=== PATIENT | male | born 1950 | race Caucasian/White ===

== ENCOUNTER 2021-02-22 16:11 | Emergency (ER) | payer MEDICARE, SELFPAY ==
[2021-02-22] VITALS (9 sets, daily range): BP systolic 145–174; BP diastolic 75–95; PULSE 56–68; RESP 13–22; O2SAT 97–99
--- NOTE | 2021-02-22 16:19 | DI.RAD.S_ITS ---
PROCEDURE: XR CHEST 1V INDICATIONS: chest pain TECHNIQUE: One view of the chest was acquired. COMPARISON: None. FINDINGS: Surgical changes and devices: None. Lungs and pleura: Lungs are clear. No pleural effusions or pneumothorax. Mediastinum: Mediastinal contours appear normal. Heart size is normal. Bones and chest wall: No suspicious bony lesions. Overlying soft tissues appear unremarkable. IMPRESSION: No acute cardiopulmonary disease process. Dictated by: Alexa Dunlap MD, PhD on 02/22/2021 at 16:40 Approved by: Alexa Dunlap MD, PhD on 02/22/2021 at 16:40
[2021-02-22 16:38] LABS: Add Manual Diff / Slide Review NO; Basophils Absolute Auto 100 /uL (0-100); Basophils Percent Auto 1.1 % (0-2); Eosinophils Absolute Auto 200 /uL (0-450); Eosinophils Percent Auto 3.2 % (2-4); Hematocrit 45.5 % (41-53); Lymphocytes Absolute Auto 1700 /uL (1100-4500); Lymphocytes Percent Auto 23.9 % (25-40); Mean Corpuscular HGB Conc 35.1 % (30-36); Mean Corpuscular Hemoglobin 31.9 PG (26-34); Mean Corpuscular Volume 90.8 fL (80-100); Monocytes Absolute Auto 800 /uL (0-900); Monocytes Percent Auto 11.3 % (3-14); Neutrophils Absolute Auto 4400 /uL (1500-7000); Neutrophils Percent Auto 60.5 % (50-75); Platelet Count 220 X10^3/uL (150-400); Red Blood Cell Count 5.01 X10^6/uL (4.5-5.9); Red Cell Distribution Width 13.3 % (11.6-14.8); White Blood Cell Count 7.3 X10^3/uL (4.5-11.0)
[2021-02-22 16:45] LABS: Prothrombin Time 11.2 SECONDS (10.1-12.7)
[2021-02-22 16:48] LABS: PTT Partial Thromboplastin Tim 36 SECONDS (26.4-36.2)
[2021-02-22 16:49] LABS: Alanine Aminotransferase 25 IU/L (<50); Albumin 4.7 g/dL (3.5-5.0); Albumin Globulin Ratio 1.6 (1.0-2.8); Alkaline Phosphatase 93 U/L (38-126); Aspartate Aminotransferase 30 IU/L (17-59); BUN Creatinine Ratio 15.3 (6-22); Bilirubin Total 0.7 mg/dL (0.2-1.3); Blood Urea Nitrogen 18 mg/dL (9-20); Calcium 10.1 mg/dL (8.4-10.2); Carbon Dioxide 27 mmol/L (22-32); Chloride 103 mmol/L (98-107); Creatine Kinase 163 U/L (55-170); Estimated Glomerular Filt Rate > 60.0 mL/min (>60); Glucose 101 mg/dL (80-110); HEMOLYSIS < 15 (0-50); Lipase 177 U/L (23-300); Potassium 3.8 mmol/L (3.4-5.1); Sodium 138 mmol/L (137-145); Total Protein 7.7 g/dL (6.3-8.2)
[2021-02-22 17:00] LABS: Troponin I < 0.012 ng/mL (0.01-0.034)
[2021-02-22 17:04] LABS: CKMB % Relative Index 1.8 % (1.5-5.0); Creatine Kinase MB 2.89 ng/mL (<2.37)
--- NOTE | 2021-02-22 17:08 | ED_ITS ---
HPI - Chest Pain General Chief Complaint: Chest Pain Stated Complaint: Chest Pains, Pressure, Beltching, Hx Stints Time Seen by Provider: 02/22/21 16:55 Source: patient and family Mode of arrival: Ambulatory Limitations: no limitations History of Present Illness HPI narrative: Patient is a 70-year-old male who is here for evaluation of epigastric abdominal pain. States the symptoms started yesterday afternoon and have continued until today but there have been times where he is been relatively asymptomatic. He stated that when the symptoms 1st started he did have a belching episode which did improving somewhat. He does have a history of coronary artery disease and stents placed. Does not seem to get worse with palpation or movement or breathing. He does feel it as a cramping sensation. No back pain. Has not tried anything for symptoms prior to arrival. Review of Systems Constitutional Constitutional: Denies fatigue, Denies fever(s) and Denies headache(s) Eyes Eyes: Denies change in vision ENT Ears, Nose, Mouth, and Throat: Denies headache(s) and Denies sore throat Cardiovascular Cardiovascular: Reports chest pain, Denies edema, Denies irregular heart rhythm and Denies dyspnea Respiratory Respiratory: Denies cough and Denies dyspnea Gastrointestinal Gastrointestinal: Reports abdominal pain, Denies change in bowel habits, Denies nausea and Denies vomiting Genitourinary Genitourinary: Denies dysuria Genitourinary: Denies dysuria Musculoskeletal Musculoskeletal: Denies arthralgias Integumentary/Breasts Skin/Breast: Denies rash Neurologic Neurologic: Denies behavioral changes and Denies headache(s) Psychiatric Psychiatric: Denies behavioral changes Endocrine Endocrine: Denies fatigue Hematologic/Lymphatic On Anticoagulants: No Patient History Medical History Coronary artery disease Social History lives independently: Yes Exam Initial Vital Signs Initial Vital Signs: Vital Signs Pulse Rate 68 02/22/21 16:17 Respiratory Rate 22 02/22/21 16:17 Pulse Oximetry 97 02/22/21 16:17 Const General: cooperative, healthy appearing, comfortable and well developed Limitations: mental status not altered HENMT Head: normal to inspection and normocephalic Neck Lymphatic: No lymphadenopathy Chest Chest: normal inspection of the chest and No tenderness Resp Effort & Inspection: normal respiratory effort Auscultation: clear to auscultation bilaterally Cardio Rate: regular rate Rhythm: regular rhythm GI Inspection: non-distended Palpation: soft, guarding and tender (Epigastric region) Back/Spine/Pelvis Back: No CVA tenderness Skin Lesions: no lesions Rashes: no rashes Neuro General: patient alert, patient awake and patient oriented x3 Cognition: normal cognition Speech: speech normal Extrem General: normal to inspection and capillary refill normal Psych Appearance: grossly normal and well kempt Scores GCS [place] coma scale eye opening: Spontaneous Shaun coma scale verbal response: Orientated Shaun coma scale motor response: Obey commands [place] coma scale total score: 15 Course Orders Ordered: ED Orders 02/22/21 16:19 XR chest 1V Stat EKG-12 Lead Stat 02/22/21 16:22 Complete Blood Count AUTO DIFF Stat Comprehensive Metabolic Panel Stat Lipase Stat Partial Thromboplastin Time Stat Prothrombin Time INR Stat Troponin & CK Cardiac Panel Stat Vital Signs Vital signs: Vital Signs - 8 hr 02/22/21 16:17 02/22/21 16:22 02/22/21 16:31 Pulse Rate 68 64 Respiratory Rate 22 Blood Pressure 174/85 H 164/95 H Pulse Oximetry 97 99 MDM - Chest Pain Lab Data Attestation: I reviewed the patient's lab results. Result diagrams: 02/22/21 16:22 02/22/21 16:22 Labs: Lab Results 02/22/21 02/22/21 02/22/21 Range/Units 16:22 16:22 16:22 WBC 7.3 (4.5-11.0) X10^3/uL RBC 5.01 (4.5-5.9) X10^6/uL Hgb 16.0 (13.5-17.5) g/dL Hct 45.5 (41-53) % MCV 90.8 (80-100) fL MCH 31.9 (26-34) PG MCHC 35.1 (30-36) % RDW 13.3 (11.6-14.8) % Plt Count 220 (150-400) X10^3/uL Neut % (Auto) 60.5 (50-75) % Lymph % (Auto) 23.9 L (25-40) % [place] % (Auto) 11.3 (3-14) % Eos % (Auto) 3.2 (2-4) % Baso % (Auto) 1.1 (0-2) % Neut # (Auto) 4400 (0622-5754) /uL Lymph # (Auto) 1700 (1720-7428) /uL [place] # (Auto) 800 (0-900) /uL Eos # (Auto) 200 (0-450) /uL Baso # (Auto) 100 (0-100) /uL PT 11.2 (10.1-12.7) SECONDS INR 1.0 (0.9-1.3) APTT 36 (26.4-36.2) SECONDS Sodium 138 (137-145) mmol/L Potassium 3.8 (3.4-5.1) mmol/L Chloride 103 (98-107) mmol/L Carbon Dioxide 27 (22-32) mmol/L BUN 18 (9-20) mg/dL Creatinine 1.18 (0.66-1.25) mg/dL Estimated GFR > 60.0 (>60) mL/min BUN/Creatinine Ratio 15.3 (6-22) Glucose 101 (80-110) mg/dL Calcium 10.1 (8.4-10.2) mg/dL Total Bilirubin 0.7 (0.2-1.3) mg/dL AST 30 (17-59) IU/L ALT 25 (<50) IU/L Alkaline Phosphatase 93 (38-126) U/L Total Creatine Kinase 163 (55-170) U/L CK-MB (CK-2) 2.89 H (<2.37) ng/mL CK-MB (CK-2) Rel Index 1.8 (1.5-5.0) % Troponin I < 0.012 (0.01-0.034) ng/mL Total Protein 7.7 (6.3-8.2) g/dL Albumin 4.7 (3.5-5.0) g/dL Globulin 3.0 (1.7-4.1) g/dL Albumin/Globulin Ratio 1.6 (1.0-2.8) Lipase 177 (23-300) U/L 02/22/21 Range/Units 18:30 WBC (4.5-11.0) X10^3/uL RBC (4.5-5.9) X10^6/uL Hgb (13.5-17.5) g/dL Hct (41-53) % MCV (80-100) fL MCH (26-34) PG MCHC (30-36) % RDW (11.6-14.8) % Plt Count (150-400) X10^3/uL Neut % (Auto) (50-75) % Lymph % (Auto) (25-40) % [place] % (Auto) (3-14) % Eos % (Auto) (2-4) % Baso % (Auto) (0-2) % Neut # (Auto) (8378-2055) /uL Lymph # (Auto) (5159-6918) /uL [place] # (Auto) (0-900) /uL Eos # (Auto) (0-450) /uL Baso # (Auto) (0-100) /uL PT (10.1-12.7) SECONDS INR (0.9-1.3) APTT (26.4-36.2) SECONDS Sodium (137-145) mmol/L Potassium (3.4-5.1) mmol/L Chloride (98-107) mmol/L Carbon Dioxide (22-32) mmol/L BUN (9-20) mg/dL Creatinine (0.66-1.25) mg/dL Estimated GFR (>60) mL/min BUN/Creatinine Ratio (6-22) Glucose (80-110) mg/dL Calcium (8.4-10.2) mg/dL Total Bilirubin (0.2-1.3) mg/dL AST (17-59) IU/L ALT (<50) IU/L Alkaline Phosphatase (38-126) U/L Total Creatine Kinase (55-170) U/L CK-MB (CK-2) (<2.37) ng/mL CK-MB (CK-2) Rel Index (1.5-5.0) % Troponin I < 0.012 (0.01-0.034) ng/mL Total Protein (6.3-8.2) g/dL Albumin (3.5-5.0) g/dL Globulin (1.7-4.1) g/dL Albumin/Globulin Ratio (1.0-2.8) Lipase (23-300) U/L Imaging Data Chest x-ray: Radiologist's Impression: [address] [id number] ReportSigned Patient: Erik Goldberg LMR#: [id number]: 8Acct:[id number]/Sex: 70 / MDate of Service: 02/22/21Loc: EDAccession Number: [id number] Procedure: XR chest 1V Ordering Provider: Joey Farr D.O. PROCEDURE: XR CHEST 1V INDICATIONS: chest pain TECHNIQUE: One view of the chest was acquired. COMPARISON: None. FINDINGS: Surgical changes and devices: None. Lungs and pleura: Lungs are clear. No pleural effusions or pneumothorax. Mediastinum: Mediastinal contours appear normal. Heart size is normal. Bones and chest wall: No suspicious bony lesions. Overlying soft tissues appear unremarkable. IMPRESSION: No acute cardiopulmonary disease process. Dictated by: Alexa Dunlap MD, PhD on 02/22/2021 at 16:40 Approved by: Alexa Dunlap MD, PhD on 02/22/2021 at 16:40 ECG Data Attestation: I personally reviewed and interpreted this ECG as follows: Prior ECG tracings: not available for review Interpretation: Sinus rhythm Ventricular rate of 61 Normal axis Normal QRS Normal QTC No ST T wave changes MDM Narrative Medical decision making narrative: Patient's symptoms do seem to be isolated in his epigastric region any did have some tenderness to palpation in this area. He does have a history of coronary artery disease. His troponins are negative x2. His chest x-ray is unremarkable in the rest of his labs are unremarkable. Despite his past medical history I have a higher suspicion that his symptoms are GI/esophageal related rather than cardiac related. I had a discussion with him regarding this. His is at bedside. Plan will be is to discharge home with follow-up with primary doctor to discuss further risk stratification testing. He was given strict return precautions. He expressed understanding and agreement. Discharge Plan Departure Patient Disposition: Home Clinical Impression: Abdominal pain, acute, epigastric Instructions: DI for Abdominal Pain-Adult, DI for Atypical Chest Pain Activity Restrictions/Additional Instructions: Your workup here in the emergency department is very reassuring however I do recommend you contact your primary provider for a follow-up. Also return to the emergency department for any new or worsening symptoms. Continue all of your medications as directed.
[2021-02-22 18:58] LABS: Troponin I < 0.012 ng/mL (0.01-0.034)
== END 2021-02-22 19:52 | disposition home or self-care (01) ==
PROVIDERS: Emergency Provider Emergency Medicine
DX: R10.13 Epigastric pain (principal); R07.9 Chest pain, unspecified
CPT/HCPCS: 36415; 71045; 80053; 82550; 82553; 83690; 84484; 85025; 85610; 85730; 93005; 99284

== ENCOUNTER → 2021-07-13 08:04 | Outpatient (CLI) | payer MEDICARE, SELFPAY ==
[2021-07-13 09:29] LABS: Cholesterol 113 mg/dL (140-199); HDL Cholesterol 36 mg/dL (40-60); LDL Cholesterol Calculated 56 mg/dL (<100); Triglycerides 105 mg/dL (35-150)
[2021-07-13 09:43] LABS: Free T4, Direct Thyroxine 1.58 ng/dL (0.78-2.19)
[2021-07-13 09:57] LABS: Thyroid Stimulating Hormone 0.151 uIU/mL (0.47-4.68)
[2021-07-13 10:00] LABS: Prostate Specific Antigen Scrn 3.87 ng/mL (0.1-4.0)
[2021-07-16 17:53] LABS: Percent Free Testosterone 1.76 % (1.50-4.20); Testosterone Free 9.83 ng/dL (5.00-21.00); Testosterone Total 558.5 ng/dL (264.0-916.0)
== END ==
PROVIDERS: PCP Internal Medicine; Referring Provider Internal Medicine; Visit Provider Internal Medicine
DX: E03.9 Hypothyroidism, unspecified (principal); Z12.5 Encounter for screening for malignant neoplasm of prostate; E78.2 Mixed hyperlipidemia; I25.10 Atherosclerotic heart disease of native coronary artery without angina pectoris; N52.9 Male erectile dysfunction, unspecified
CPT/HCPCS: 36415; 80061; 84402; 84403; 84439; 84443; G0103

== ENCOUNTER → 2022-07-12 07:05 | Outpatient (CLI) | payer MEDICARE, SELFPAY ==
[2022-07-12 08:38] LABS: Alanine Aminotransferase 19 IU/L (<50); Albumin 4.2 g/dL (3.5-5.0); Albumin Globulin Ratio 1.4 (1.0-2.8); Alkaline Phosphatase 82 U/L (38-126); Aspartate Aminotransferase 21 IU/L (17-59); BUN Creatinine Ratio 12.7 (6-22); Bilirubin Total 0.9 mg/dL (0.2-1.3); Blood Urea Nitrogen 15 mg/dL (9-20); Carbon Dioxide 25 mmol/L (22-32); Chloride 107 mmol/L (98-107); Cholesterol 106 mg/dL (140-199); Estimated Glomerular Filt Rate > 60 mL/min (>60); Glucose 107 mg/dL (80-110); HDL Cholesterol 30 mg/dL (40-60); HEMOLYSIS < 15 (0-50); LDL Cholesterol Calculated 57 mg/dL (<100); Potassium 3.8 mmol/L (3.4-5.1); Sodium 141 mmol/L (137-145); Total Protein 7.2 g/dL (6.3-8.2); Triglycerides 95 mg/dL (35-150)
[2022-07-12 08:52] LABS: Free T4, Direct Thyroxine 1.37 ng/dL (0.78-2.19)
[2022-07-12 09:05] LABS: Thyroid Stimulating Hormone 0.418 uIU/mL (0.47-4.68)
[2022-07-13 08:13] LABS: Varicella IgG Antibody 2880 index (Immune >165)
== END ==
PROVIDERS: PCP Internal Medicine; Referring Provider Internal Medicine; Visit Provider Internal Medicine
DX: E78.2 Mixed hyperlipidemia (principal); E03.9 Hypothyroidism, unspecified
CPT/HCPCS: 36415; 80053; 80061; 84439; 84443; 86787

== ENCOUNTER → 2022-08-17 10:27 | Outpatient (CLI) | payer MEDICARE, SELFPAY ==
--- NOTE | 2022-09-07 11:27 | P.HOLT.S_ITS ---
[facility] Diver Report Referral & Results Date Patient Seen: 08/17/22 Requesting provider: Miguel Kelly Indication: Arrhythmia Duration of monitoring (days): 14 Diary information: There were 7 patient triggered events and 6 patient diary entries All of these patient events were variably associated with (within 45 seconds) sinus rhythm, PACs, and PVCs Data: Minimum heart rate was 44 beats per minute at 02:42 on 08/21/2022 Maximum sinus heart rate was 129 beats per minute at 11:51 on 08/18/2022 Maximum overall heart rate was 174 beats per minute at 21:03 on 08/20/2022 during a run of SVT Less than 1% of identified beats were ventricular or supraventricular ectopic in origin, which would classify them as rare. There were 125 runs of SVT with the fastest being the 4 beat run above rate of 174 beats per minute, the longest lasting 11.8 seconds at an average rate of 114 beats per minute which suggest possibly atrial tachycardia rather than true SVT There were no pauses of 3 seconds or longer or episodes of atrial fibrillation identified on this study Impression: 14 day quality assurance monitor chassis demonstrating rare brief runs of SVT as above Otherwise rare PVCs and PACs without clear correlation between patient reported symptoms any one particular dysrhythmia Clinical correlation suggested
== END ==
PROVIDERS: PCP Internal Medicine; Referring Provider Internal Medicine; Visit Provider Internal Medicine
DX: I49.9 Cardiac arrhythmia, unspecified (principal)
CPT/HCPCS: 93246; 93248

== ENCOUNTER → 2023-02-22 08:41 | Outpatient (CLI) | payer MEDICARE, SELFPAY ==
[2023-02-22 09:57] LABS: Alanine Aminotransferase 25 IU/L (<50); Albumin 4.2 g/dL (3.5-5.0); Albumin Globulin Ratio 1.7 (1.0-2.8); Alkaline Phosphatase 88 U/L (38-126); Aspartate Aminotransferase 25 IU/L (17-59); BUN Creatinine Ratio 15.3 (6-22); Bilirubin Total 0.8 mg/dL (0.2-1.3); Blood Urea Nitrogen 18 mg/dL (9-20); Calcium 9.1 mg/dL (8.4-10.2); Carbon Dioxide 25 mmol/L (22-32); Chloride 105 mmol/L (98-107); Cholesterol 107 mg/dL (140-199); Estimated Glomerular Filt Rate > 60 mL/min (>60); Globulin 2.5 g/dL (1.7-4.1); Glucose 108 mg/dL (80-110); HDL Cholesterol 36 mg/dL (40-60); HEMOLYSIS < 15 (0-50); LDL Cholesterol Calculated 53 mg/dL (<100); Potassium 4.4 mmol/L (3.4-5.1); Sodium 139 mmol/L (137-145); Total Protein 6.7 g/dL (6.3-8.2); Triglycerides 89 mg/dL (35-150)
[2023-02-22 10:04] LABS: Free T4, Direct Thyroxine 1.21 ng/dL (0.78-2.19)
[2023-02-22 10:18] LABS: Thyroid Stimulating Hormone 0.546 uIU/mL (0.47-4.68)
[2023-02-22 10:38] LABS: Vitamin B12 353 pg/mL (239-931)
== END ==
PROVIDERS: PCP Internal Medicine; Referring Provider Internal Medicine; Visit Provider Internal Medicine
DX: E03.9 Hypothyroidism, unspecified (principal); E78.2 Mixed hyperlipidemia; G62.9 Polyneuropathy, unspecified; I25.10 Atherosclerotic heart disease of native coronary artery without angina pectoris
CPT/HCPCS: 36415; 80053; 80061; 82607; 84439; 84443

== ENCOUNTER → 2023-09-27 08:33 | Outpatient (CLI) | payer MEDICARE, SELFPAY ==
[2023-09-27 10:03] LABS: Alanine Aminotransferase 20 IU/L (<50); Albumin 4.2 g/dL (3.5-5.0); Albumin Globulin Ratio 1.4 (1.0-2.8); Alkaline Phosphatase 80 U/L (38-126); Aspartate Aminotransferase 22 IU/L (17-59); BUN Creatinine Ratio 15.3 (6-22); Blood Urea Nitrogen 18 mg/dL (9-20); Calcium 9.4 mg/dL (8.4-10.2); Carbon Dioxide 23 mmol/L (22-32); Chloride 107 mmol/L (98-107); Cholesterol 101 mg/dL (140-199); Estimated Glomerular Filt Rate > 60 mL/min (>60); Globulin 2.9 g/dL (1.7-4.1); Glucose 106 mg/dL (80-110); HDL Cholesterol 34 mg/dL (40-60); HEMOLYSIS < 15 (0-50); LDL Cholesterol Calculated 50 mg/dL (<100); Sodium 138 mmol/L (137-145); Total Protein 7.1 g/dL (6.3-8.2); Triglycerides 83 mg/dL (35-150)
[2023-09-27 10:21] LABS: Free T4, Direct Thyroxine 1.44 ng/dL (0.78-2.19)
[2023-09-27 10:35] LABS: Thyroid Stimulating Hormone 0.983 uIU/mL (0.47-4.68)
== END ==
PROVIDERS: PCP Internal Medicine; Referring Provider Internal Medicine; Visit Provider Internal Medicine
DX: E78.2 Mixed hyperlipidemia (principal); I10 Essential (primary) hypertension; E03.9 Hypothyroidism, unspecified
CPT/HCPCS: 36415; 80053; 80061; 84439; 84443

== ENCOUNTER → 2024-09-23 09:33 | Outpatient (CLI) | payer MEDICARE, SELFPAY ==
[2024-09-23 10:39] LABS: Add Manual Diff / Slide Review NO; Basophils Absolute Auto 100 /uL (0-100); Basophils Percent Auto 0.8 % (0-2); Eosinophils Absolute Auto 200 /uL (0-450); Eosinophils Percent Auto 2.9 % (2-4); Hematocrit 46.6 % (41-53); Hemoglobin 15.6 g/dL (13.5-17.5); Lymphocytes Absolute Auto 1700 /uL (1100-4500); Lymphocytes Percent Auto 27.4 % (25-40); Mean Corpuscular HGB Conc 33.5 % (30-36); Mean Corpuscular Hemoglobin 30.8 PG (26-34); Monocytes Absolute Auto 700 /uL (0-900); Monocytes Percent Auto 11.9 % (3-14); Neutrophils Absolute Auto 3600 /uL (1500-7000); Platelet Count 251 X10^3/uL (150-400); Red Blood Cell Count 5.06 X10^6/uL (4.5-5.9); Red Cell Distribution Width 13.1 % (11.6-14.8); White Blood Cell Count 6.3 X10^3/uL (4.5-11.0)
[2024-09-23 10:51] LABS: Alanine Aminotransferase 26 IU/L (<50); Albumin 4.3 g/dL (3.5-5.0); Albumin Globulin Ratio 1.7 (1.0-2.8); Alkaline Phosphatase 86 U/L (38-126); Aspartate Aminotransferase 29 IU/L (17-59); BUN Creatinine Ratio 13.7 (6-22); Bilirubin Total 0.8 mg/dL (0.2-1.3); Blood Urea Nitrogen 17 mg/dL (9-20); Calcium 9.6 mg/dL (8.4-10.2); Carbon Dioxide 25 mmol/L (22-32); Chloride 107 mmol/L (98-107); Cholesterol 121 mg/dL (140-199); Estimated Glomerular Filt Rate > 60 mL/min (>60); Globulin 2.5 g/dL (1.7-4.1); Glucose 104 mg/dL (80-110); HDL Cholesterol 39 mg/dL (40-60); HEMOLYSIS < 15 (0-50); LDL Cholesterol Calculated 62 mg/dL (<100); Magnesium 2.1 mg/dL (1.6-2.3); Potassium 4.4 mmol/L (3.4-5.1); Sodium 139 mmol/L (137-145); Total Protein 6.8 g/dL (6.3-8.2); Triglycerides 98 mg/dL (35-150)
[2024-09-23 11:05] LABS: Free T4, Direct Thyroxine 1.18 ng/dL (0.78-2.19)
[2024-09-23 11:19] LABS: Thyroid Stimulating Hormone 0.862 uIU/mL (0.47-4.68)
== END ==
PROVIDERS: PCP Internal Medicine; Referring Provider Internal Medicine; Visit Provider Internal Medicine
DX: G47.00 Insomnia, unspecified (principal); I10 Essential (primary) hypertension; E78.2 Mixed hyperlipidemia; E03.9 Hypothyroidism, unspecified; I25.10 Atherosclerotic heart disease of native coronary artery without angina pectoris
CPT/HCPCS: 36415; 80053; 80061; 83735; 84439; 84443; 85025

== ENCOUNTER → 2025-07-17 16:17 | Outpatient (CLI) | payer MEDICARE, SELFPAY ==
--- NOTE | 2025-07-17 16:19 | DI.RAD.S_ITS ---
PROCEDURE: XR HIP W PEL IF DONE RT 2V INDICATIONS: right hip pain TECHNIQUE: 2 views of the hip were acquired. COMPARISON: None. FINDINGS: Moderate degenerative changes bilateral hips with joint space narrowing and osteophytes calc grand Alexa grade 3. Degenerative changes lower lumbar spine partially imaged. No radiographic evidence of fracture dislocation or high attenuation foreign body IMPRESSION: Degenerative changes. If symptoms persist or worsen, or there is high clinical suspicion of pelvic/hip abnormality, MRI could be performed. Dictated by: Quinton Rai M.D. on 07/18/2025 at 15:06 Approved by: Quinton Rai M.D. on 07/18/2025 at 15:08
--- NOTE | 2025-07-17 16:19 | DI.RAD.S_ITS ---
PROCEDURE: XR KNEE RT 3V INDICATIONS: right leg pain TECHNIQUE: 3 views of the knee were acquired. COMPARISON: None. FINDINGS: Mild joint space narrowing in the medial greater than patellofemoral and lateral compartments Kellgren Alexa grade 2 degenerative change. No radiographic evidence of fracture dislocation, significant knee joint effusion or high attenuation foreign body. IMPRESSION: Mild degenerative changes. Dictated by: Quinton Rai M.D. on 07/18/2025 at 13:56 Approved by: Quinton Rai M.D. on 07/18/2025 at 13:58
[2025-07-17 17:09] LABS: Appearance Urine UA CLEAR; Bilirubin Urine UA NEGATIVE (NEGATIVE); Color Urine UA YELLOW; Glucose Urine UA NEGATIVE (Negative); Ketones Urine UA TRACE (NEGATIVE); Leukocyte Esterase Urine UA NEGATIVE (NEGATIVE); Nitrite Urine UA NEGATIVE (Negative); Occult Blood Urine UA NEGATIVE (Negative); Protein Urine UA NEGATIVE (Negative); Specific Gravity Urine UA 1.010 (1.000-1.035); Urobilinogen Urine UA 0.2 E.U./dL (0.2); pH Urine UA 5.5 (4.5-8.0)
[2025-07-17 17:26] LABS: Culture Indicated Urine Cult Not Indicated
== END ==
PROVIDERS: PCP Internal Medicine; Referring Provider Internal Medicine; Visit Provider Internal Medicine
DX: M79.604 Pain in right leg (principal); M25.551 Pain in right hip; R30.0 Dysuria
CPT/HCPCS: 73502; 73562; 81001

== ENCOUNTER 2025-09-16 13:00 | Outpatient (RCR) | payer MEDICARE, SELFPAY ==
--- NOTE | 2025-08-21 17:51 | PT.OPPOC ---
Physical, Occupational & Speech Therapy At [facility] Current Diagnoses Pain in right leg (08/21/25) Visit Care Team Role Provider Type Miguel Kelly MD Family Provider Physician Primary Care Provider Specialty: Internal Medicine Address: [address] [place] [address], [address], [place], [address] Email: [email or web address] Markham PA-C Attending Provider Advanced Industrial Engineer Referring Provider Specialty: Orthopedics Orthopedic Surgery Address: [address] [place] [address], [id number] Email: [email or web address] Plan Of Care PT OP: Lower Back/Lower Extremity Start: 08/20/25 18:27 Freq: Status: Active Protocol: Document 08/21/25 13:00 [facility] (Rec: 08/21/25 13:51 [facility] [id number]) Out-Patient Physical Therapy Visit Information Visit Information Visit Type Initial Evaluation Visit Start Time 13:02 Visit Stop Time 13:46 Visit Number 1 Number of NETWORK SYSTEMS ENGINEER Visits 0 Progress Note Due 09/20/25 Current Condition History of Current Condition Onset Date 2 months ago Current Complaints B leg pain History of Current Pain in both legs and when first started it would move Condition around now it is entire leg. Has a R hip issue too. At one point, R leg was worse and if crossed legs then it would hurt. Been on maloxicam for 1 month and it is better in R hip. Has a little dog that takes for a walk and that would help when pain was more. If puts legs up, hurts less. no known reason for onset. notes leg pain was over a year. Thinks possibly getting Parkinson's for a couple of years. Legs used to feel like couldnt walk a normal pace about a year or so a go and when got dog, that improved. Has had back pain and is careful d/t hx of injurying it in past. He does back brace if lifts something heavy etc. Gets a slight tinge of R back pain. Decreased walks for a while and if goes too far, then back and hip will get worse. Gets a tired sore feeling. Sometimes he got too far and was worried about making it back. Prior to the past couple months .75-1 mile twice a day and now .5 mile twice a day. When this first happened, felt like legs were weaker. 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 Doing less around the house. Laying on back at night is less aching but still present. notes a stiffness and slowness to what he does. aggravates: at night, sitting Treatment Goals Patient/Caregiver strengthen leg muscles w/o hurting himself Goals Patient Questionnaires Lower Extremity Functional Scale LEFS Score 44/80 Functional Tests 6 Minute Walk Test Distance 1242ft 30 Second Sit to Stand Test Score 11x Comments silver chair Five Times Sit to Stand Test Score 15 sec OP Gait Assessment Comments Gait Comments dec trunk rotation Posture Evaluation Comments Posture Comments R trunk SB, inc kyphosis and fwd head Hip Strength Hip Manual Muscle Testing Right Flexion (L2) 3+ Fair+ Extension (S1) 3 Fair Abduction 3+ Fair+ External Rotation 4- Good- Internal Rotation 4+ Good+ Left Flexion (L2) 4 Good Extension (S1) 3+ Fair+ Abduction 4+ Good+ External Rotation 4 Good Internal Rotation 5 Normal Knee Strength Knee Manual Muscle Testing Right Flexion (S2) 4 Good Extension (L3) 5 Normal Left Flexion (S2) 5 Normal Extension (L3) 5 Normal Ankle/Foot Strength Ankle and Foot Manual Muscle Testing B Dorsiflexion (L4) 5 Normal Plantarflexion (S1) 5 Normal Comments seated testing B Physical Therapy Assessment Rehab Potential Rehabilitation Good Potential Evaluation Complexity Number of Personal 3 or More Factors/ Comorbidities Number of Body 4 or More Systems Impaired Clinical Evolving Presentation at Evaluation Impairments Impairments Activity Tolerance,Balance,Coordination,Functional Activities,Functional Mobility,Gait,Pain,Posture,ROM, Soft Tissue Mobility,Strength Goals pain Short Term Goal (STG Pt will be able to increase to at least .75 mile walk ) for at least one of his daily walks STG Duration 09/21 Detention Goal (LTG) Pt will be able to return to .75 mile to 1 mile walks 2x/day and doing more housework w/o inc R back, hip or BLE pain. LTG Duration 11/11 strength Short Term Goal (STG Pt will demonstrate independence w/HEP by being able to ) perform with no more than min cues. STG Duration 09/21 Farmworker Vegetable Goal (LTG) Pt will score at least 4+/5 on all BLE MMT and at least 3/5 LPM to show improved strength to allow pt to have less pain with walking and return to more ADLs LTG Duration 11/16 sit to stand Farmworker Vegetable Goal (LTG) Pt will do 5x sit to grinding operator no greater than 12 sec per age related norms to dec fall risk LTG Duration 11/21 Assessment Summary Assessment Pt presents w/R LBP, R hip pain and BLE pain and overall weakness in LEs with pt noting he may have Parkinson's but no neuro consult yet. Encouraged to discuss with primary re: neuro consult. He does have significant weakness and dec speed w/gait and mobility overall and would benefit from skilled PT to address this to improve his daily function and dec pain. Physical Therapy Plan Frequency and Duration Frequency of 1x/Week Treatment Duration of 12 treatment (weeks) Plan of Care Start 08/21/25 Date Plan of Care End 11/19/25 Date Therapeutic Interventions Therapeutic Balance Training,Gait Training,Home Exercise Program, Interventions Joint Mobilizations,Manual Therapy,Neuromuscular Re- education,Patient/Caregiver Education,Self-Care/Home Management,Soft Tissue Mobilization,Taping,Therapeutic Activities,Therapeutic Exercises Modalities Cold Pack/Ice Massage,Hot Packs,Infrared Therapy, Traction- Mechanical,Ultrasound Next Visit Focus/Plan Next Note Type Treatment Note Plan of Care Dates Plan of Care Start Date 08/21/25 Plan of Care End Date 11/19/25 Electronically Signed by: Leilani Worthington, PT 08/21/25 [id number] If you are in agreement with this Plan of Care, please return a signed and dated copy. I have reviewed this Plan of Care and certify that the skilled therapy services above are required to meet the patient?s needs. Physician Signature Date Printed Name and Credentials Clinical Instructor Signature Printed Name and Credentials
--- NOTE | 2025-08-28 16:24 | PT.OTN ---
Current Diagnoses Pain in right leg (08/28/25) Physical Therapy Treatment Note PT OP: Lower Back/Lower Extremity Start: 08/20/25 18:27 Freq: Status: Active Protocol: Document 08/28/25 13:05 [facility] (Rec: 08/28/25 13:53 [facility] Laptop) Out-Patient Physical Therapy Visit Information Visit Information Visit Type Treatment Note Visit Note Hero is present throughout session and takes notes . Visit Start Time 13:06 Visit Stop Time 13:52 Visit Number 2 Number of FAMILY SERVICE ASSISTANT Visits 1 Progress Note Due 09/20/25 Evaluation Information Evaluation Date 08/21/[address] [facility] B OP-PT Subjective Patient Comments Patient Comments Erik reports hard of hearing in both ears, and it's stressful to come to PT because of being hard of hearing. He has a seated elliptical at home he uses sometimes. They have not yet reached out to neurologist about possible Parkinson's. Cardio Equipment Recumbent Elliptical (NuStep) Duration (Minutes) 6 Resistance 5 Seat Position 10 Other Handles 12, neural priming; cues heel drive Therapeutic Exercises Sitting Exercises marching Sitting Exercise alternating Name Side bilateral Equipment Used 4# AW above ea knee Reps/Minutes 2x15 LAQ Sitting Exercise 1. w/ lumbar support 2. HEP tall sit edge of seat Name Side bilateral Resistance 4# AW ea Reps/Minutes x10 ea Comments initial cues L toes up towards ceiling d/t excessive hip ER Standing Exercises HS curls Standing Exercise HEP Name Side bilateral Resistance 4# AW Equipment Used // bars Reps/Minutes x10 ea Comments cue upright posture, no hip flexion 2-way hip Standing Exercise HEP: abd, ext Name Side bilateral Resistance lvl 1 at ankles - given to pt Equipment Used // bars Reps/Minutes x10 ea Other Exercises STS Other Exercise Name HEP sit to stand 1.demos home as many in 15 sec 2. STS w/ eccentric focus Equipment Used silver chair Reps/Minutes 1. 15sec 2. x15 Comments cues for hip hinge and ecc control Gait Training Gait Activity Ambulation Description indoor/outdoors Device Used none Level of Assistance CGA Surface carpet, tile, pavement, gravel (flat/incline/decline) Distance/Duration 230 ft CGA, 230 ft w/ FAMILY SERVICE ASSISTANT providing resistance at gait belt from behind Comments monitoring for LBP or hip pain, does not occur. half distance is with FAMILY SERVICE ASSISTANT providing resistance through gait belt for increased core activation - no symptoms reported. Neuro Re-Education Treatment Balance Activities SL Details HEP Single Leg balance Surface firm Equipment // bars Reps/Duration trials Comments initiated with UE support>no UE support: 15s ea, L 8s, R 20s Physical Therapy Assessment Goals pain Short Term Goal (STG Pt will be able to increase to at least .75 mile walk ) for at least one of his daily walks STG Duration 09/21 Supervisor Concrete Stone Finishing Goal (LTG) Pt will be able to return to .75 mile to 1 mile walks 2x/day and doing more housework w/o inc R back, hip or BLE pain. LTG Duration 11/11 strength Short Term Goal (STG Pt will demonstrate independence w/HEP by being able to ) perform with no more than min cues. STG Duration 09/21 Supervisor Concrete Stone Finishing Goal (LTG) Pt will score at least 4+/5 on all BLE MMT and at least 3/5 LPM to show improved strength to allow pt to have less pain with walking and return to more ADLs LTG Duration 11/16 sit to stand Supervisor Concrete Stone Finishing Goal (LTG) Pt will do 5x sit to cooling tower operator no greater than 12 sec per age related norms to dec fall risk LTG Duration 11/21 Assessment Summary Assessment Treatment focus on LE strengthening and issuing HEP ( writes down ex's). Encouraged to discuss neuro consult with primary as advised at initial evaluation. Erik tolerates session without pain except for LBP reported with resisted standing hip extension, which improves with cues for upright posture and smaller range. He requires initial cues with standing hamstring curls to maintain knee extension and avoid hip flexion . Physical Therapy Plan Frequency and Duration Frequency of 1x/Week Treatment Duration of 12 treatment (weeks) Plan of Care Start 08/21/25 Date Plan of Care End 11/19/25 Date Next Visit Focus/Plan Next Note Type Treatment Note Next Visit Plan Next: Consider room d/t [facility]. Check if PCP contacted re: neuro consult; assess response to 08/28 treatment and review HEP (STS 15sec/x10 twice daily w/ eccentric and hip hinge focus; Seated edge of chair LAQs, alt marching; Standing resisted hip abd, ext w/ Lvl 1 at ankles, HS curls; SL Balance w/ UE support prn). Consider Shuttle Press, supine hip strengthening, core strengthening. POC: Per 08/21/25 Assessment.
--- NOTE | 2025-09-04 17:16 | PT.OTN ---
Current Diagnoses Pain in right leg (09/04/25) Physical Therapy Treatment Note PT OP: Lower Back/Lower Extremity Start: 08/20/25 18:27 Freq: Status: Active Protocol: Document 09/04/25 10:57 [facility] (Rec: 09/04/25 11:47 [facility] Laptop) Out-Patient Physical Therapy Visit Information Visit Information Visit Type Treatment Note Visit Note Hero is present throughout session Visit Start Time 10:51 Visit Stop Time 11:40 Visit Number 3 Number of SERVICING MANAGER Visits 2 Progress Note Due 09/20/25 Evaluation Information Evaluation Date 08/21/25 Precautions Precautions APACHE B OP-PT Subjective Patient Comments Patient Comments Erik reports he was very sore after last session, and especially gets sore with band exercises; he doesn't notice the soreness during the exercise, mostly at night. He adjusted his exercises to 8x instead of 15 and every other day. He has an elliptical at home he has been using a bit, but not today. and pt report waiting to complete PT before reaching out to Neurologist. Cardio Equipment Elliptical Duration (Minutes) 5 Resistance 5>3 Other B knee discomfort resolves with decreased resistance. Therapeutic Exercises Supine Exercises Bridging Supine Exercise Name added to am HEP Resistance Lvl1 Tb Reps/Minutes x10 ea wo and w/ Tb Comments cues for breath and feet closer to bottom for gluteal strengthening focus LTR Supine Exercise Name added to am HEP Side bilateral Equipment Used initial tactile cues for PPT Reps/Minutes x10 ea Comments Pt challenged to maintain PPT and cued for breathwork Sidelying Exercises Clamshell Side bilateral Resistance Lvl 1 Tb Comments cues for stable pelvis, core activation, breath Self-Care/Home Management Treatment Education Patient Education Body Mechanics,Home Exercise Program Other Education -Discussed w/ pt okay to modify HEP as needed from x15 to 5-8, and okay to perform standing 2-way hip without Lvl 1 Tb due to increased soreness, and alternate new HEP with personal HEP for back. Pt encouraged to bring personal HEP for back for incorporating into new HEP for pt's intended discharge to HEP. -Discussed pt's POC expires 11/19/25 and pt may currently schedule more visits. -Pt demonstrates consistent breath holding compensation pattern for weak core. Edu to pt and spouse w/ visual aids re: TrA m. anatomy and interrelationship w/ diaphragm and pelvic floor m. w/ emphasis on posture and breathwork, and how to incorporate into current HEP and ADLs. Physical Therapy Assessment Goals pain Short Term Goal (STG Pt will be able to increase to at least .75 mile walk ) for at least one of his daily walks STG Duration 09/21 Custodial Goal (LTG) Pt will be able to return to .75 mile to 1 mile walks 2x/day and doing more housework w/o inc R back, hip or BLE pain. LTG Duration 11/11 strength Short Term Goal (STG Pt will demonstrate independence w/HEP by being able to ) perform with no more than min cues. STG Duration 09/21 Custodial Goal (LTG) Pt will score at least 4+/5 on all BLE MMT and at least 3/5 LPM to show improved strength to allow pt to have less pain with walking and return to more ADLs LTG Duration 11/16 sit to stand Custodial Goal (LTG) Pt will do 5x sit to creative writing english professor no greater than 12 sec per age related norms to dec fall risk LTG Duration 11/21 Assessment Summary Assessment Pt and have been encouraged to reach out to PCP regarding possible neurological consult and are choosing to wait to do so until PT completed. Majority of treatment provided in room due to pt APACHE B. Treatment focus on HEP review and education. Standing 2 -way hip exercises modified from Lvl 1 Tb to no resistance with cues for upright posture, neutral foot, smaller range and maintaining knee extension focus w/ breathwork. Sidelying clamshell posterior pelvic rocking resolves w/ cues for TrA activation and breathwork. Pt demonstrates breath holding compensation pattern consistent with weak core. Edu to pt and spouse w/ visual aids re: TrA m. anatomy and interrelationship w/ diaphragm and pelvic floor m. w/ emphasis on posture and breathwork, and how to incorporate into current HEP and ADLs. Pt encouraged to bring personal HEP for back next visit. Physical Therapy Plan Frequency and Duration Frequency of 1x/Week Treatment Duration of 12 treatment (weeks) Plan of Care Start 08/21/25 Date Plan of Care End 11/19/25 Date Next Visit Focus/Plan Next Note Type Treatment Note Next Visit Plan Next: Consider room d/t APACHE B.; review HEP: (Elliptical w/u; 5-8 reps ea: Supine LTR, bridging w/ Lvl 1; S/L Clamshells Lvl 1; STS 15sec/x10 twice daily w/ eccentric and hip hinge focus; Seated edge of chair LAQs, alt marching; Standing resisted hip abd, ext, HS curls; SL Balance trials w/ UE support prn). Consider Shuttle Press, core strengthening. POC: Per 08/21/25 Assessment.
--- NOTE | 2025-09-10 10:12 | ED.ANXIETY ---
HPI - Anxiety Related Data Home Medications ?Medication ?Instructions ?Recorded ?Confirmed acetaminophen 500 mg tablet 500 mg PO DAILY PRN 06/10/21 07/24/25 (Tylenol Extra Strength) aspirin 81 mg tablet,delayed 81 mg PO DAILY 06/10/21 07/24/25 release (Adult Low Dose Aspirin) cholecalciferol (vitamin D3) 125 125 mcg PO DAILY 06/10/21 07/24/25 mcg (5,000 unit) capsule coenzyme Q10 300 mg capsule (Co 300 mg PO DAILY 06/10/21 07/24/25 Q-10) vitamins A,C,P-jwth-ooeynx 4,296 1 cap PO BID 06/10/21 07/24/25 mcg-226 mg-90 mg capsule (PreserVision AREDS) fluticasone propionate 50 1 spray intranasal DAILY PRN 10/03/23 07/24/25 mcg/actuation nasal spray,suspension (Flonase Allergy Relief) Magnesium 1 tab PO DAILY 04/02/24 07/24/25 meloxicam 15 mg tablet 15 mg PO DAILY 08/20/25 Previous Rx's ?Medication ?Instructions ?Recorded sildenafil 100 mg tablet 50 - 100 mg (0.5 - 1 x 100 mg) PO 09/30/24 DAILY PRN sexual activity #40 tabs zolpidem 5 mg tablet 2.5 - 5 mg (0.5 - 1 x 5 mg) PO 03/31/25 BEDTIME PRN insomnia #60 tabs atorvastatin 40 mg tablet 40 mg PO DAILY #90 tabs 07/14/25 levothyroxine 125 mcg tablet 125 mcg PO DAILY #90 tabs 07/14/25 Allergies Allergy/AdvReac Type Severity Reaction Status Date / Time Beta-Blockers AdvReac Intermediate fatigue, ED Verified 07/17/25 15:51 (Beta-Adrenergic Bloc rosuvastatin (From Crestor) AdvReac Mild Verified 07/17/25 15:51 Patient History Medical History (Updated 08/06/25 @ 21:19 by Rose Markham PA-C) Insomnia Essential hypertension Erectile dysfunction Mixed hyperlipidemia Tinnitus (~1969) Hearing loss (~1969) Hemorrhoid Hypothyroidism (~1984) Coronary artery disease (~2005) Surgical History (Updated 07/23/21 @ 09:35 by Miguel Kelly MD) Anesthesia History of tonsillectomy and adenoidectomy S/P coronary artery stent placement Family History (Updated 06/10/21 @ 09:36 by Mita Holman) Father Parkinson's disease Grandmother Cancer Social History lives independently: Yes Discharge Plan Discharge Med Rec/Prescriptions Prescriptions: No Action levothyroxine 125 mcg tablet 125 mcg PO DAILY Qty: 90 3RF atorvastatin 40 mg tablet 40 mg PO DAILY Qty: 90 3RF meloxicam 15 mg tablet 15 mg PO DAILY Magnesium 300 mg 1 tab PO DAILY PreserVision AREDS [id number] capsule 1 cap PO BID Co Q-10 300 mg capsule 300 mg PO DAILY aspirin [Adult Low Dose Aspirin] 81 mg tablet,delayed release (DR/EC) 81 mg PO DAILY acetaminophen [Tylenol Extra Strength] 500 mg tablet 500 mg PO DAILY PRN cholecalciferol (vitamin D3) 125 mcg (5,000 unit) capsule 125 mcg PO DAILY fluticasone propionate [Flonase Allergy Relief] 50 mcg/actuation spray,suspension 1 spray intranasal DAILY PRN Rx Instructions: administer into each nostril sildenafil 100 mg tablet 50 - 100 mg PO DAILY PRN (Reason: sexual activity) Qty: 40 4RF Rx Instructions: administer 30 minutes to 4 hours before activity zolpidem 5 mg tablet 2.5 - 5 mg PO BEDTIME PRN (Reason: insomnia) Qty: 60 1RF Visit Report/Discharge Packet Referrals: Miguel Kelly MD [Primary Care Provider, Internal Medicine] Discharge Data Primary Care Provider: Miguel Kelly Attending Provider: Rose Markham
--- NOTE | 2025-09-10 18:43 | PT.OPPN ---
Current Diagnoses Pain in right leg (09/10/25) Physical Therapy Progress Note PT OP: Lower Back/Lower Extremity Start: 08/20/25 18:27 Freq: Status: Active Protocol: Document 09/10/25 18:37 [facility] (Rec: 09/10/25 18:43 [facility] [id number]) Out-Patient Physical Therapy Visit Information Visit Information Visit Type Progress Note Visit Note Hero is present throughout session Visit Start Time 13:04 Visit Stop Time 13:45 Visit Number 4 Number of DATA REPORTING ANALYST Visits 0 Progress Note Due 10/10/25 Precautions Precautions [place] B OP-PT Subjective Patient Comments Patient Comments Feels good about next session being his last Functional Tests 30 Second Sit to Stand Test Score 14 Comments silver chair Five Times Sit to Stand Test Score 11 sec Hip Strength Hip Manual Muscle Testing Right Flexion (L2) 4+ Good+ Extension (S1) 4- Good- Abduction 4 Good Adduction 5 Normal External Rotation 4 Good Internal Rotation 5 Normal Left Flexion (L2) 5 Normal Extension (S1) 4- Good- Abduction 4 Good Adduction 5 Normal External Rotation 4+ Good+ Internal Rotation 5 Normal Knee Strength Knee Manual Muscle Testing Right Flexion (S2) 4+ Good+ Extension (L3) 5 Normal Left Flexion (S2) 5 Normal Extension (L3) 5 Normal Therapeutic Exercises Supine Exercises Bridging Resistance Lvl2 Tb at hips Reps/Minutes 10 Comments cues knees over toes, cues breathing; attempted 5x SL but painful LTR Side bilateral Reps/Minutes x15 ea Comments cues allow back to stretch then push back down on way up Sidelying Exercises Clamshell Side bilateral Resistance Lvl 2 Tb Reps/Minutes 15 Comments cues for stable pelvis,hand on hip to monitor, breath Standing Exercises march Side bilateral Resistance L1 on feet Reps/Minutes 2x10 Comments cues core 2-way hip Standing Exercise HEP: abd, ext in bent over position Name Side bilateral Resistance lvl 1 at ankles Equipment Used // bars Reps/Minutes 15 ea Comments cues for bent over position for back, cues toes fwd and neutral spine Other Exercises STS Side bilateral Equipment Used silver chair Reps/Minutes 15 Physical Therapy Assessment Goals pain Short Term Goal (STG Pt will be able to increase to at least .75 mile walk ) for at least one of his daily walks STG Duration achieved 09/10 Detention Goal (LTG) Pt will be able to return to .75 mile to 1 mile walks 2x/day and doing more housework w/o inc R back, hip or BLE pain. LTG Duration 11/11 strength Short Term Goal (STG Pt will demonstrate independence w/HEP by being able to ) perform with no more than min cues. STG Duration achieved 09/10-adjusting as able Plate Glass Installer Goal (LTG) Pt will score at least 4+/5 on all BLE MMT and at least 3/5 LPM to show improved strength to allow pt to have less pain with walking and return to more ADLs 09/10-improving LTG Duration 11/16 sit to stand Detention Goal (LTG) Pt will do 5x sit to graduate student instructor no greater than 12 sec per age related norms to dec fall risk LTG Duration achieved to 09/10 Assessment Summary Assessment Pt did better with exercise performance today and was able to adjust to more difficult exercises. heavy cues needed to avoid back feeling exercises. He is inproving with strength and would benefit from cont PT Physical Therapy Plan Frequency and Duration Frequency of 1x/Week Treatment Duration of 12 treatment (weeks) Plan of Care Start 08/21/25 Date Plan of Care End 11/19/25 Date Next Visit Focus/Plan Next Note Type Discharge Summary Next Visit Plan review exercises to indep HEP and add exercises as needed for pt, core or back mobility may be helpful
--- NOTE | 2025-09-16 17:29 | PT.OPDS ---
Current Diagnoses Pain in right leg (09/16/25) Visit Care Team Role Provider Type Miguel Kelly MD Family Provider Physician Primary Care Provider Specialty: Internal Medicine Address: [address] [place] [address], [address], [place], [address] Email: [email or web address] Rose Markham PA-C Attending Provider Advanced Parking Meter Attendant Referring Provider Specialty: Orthopedics Orthopedic Surgery Address: [address] [place] [address], [id number] Email: [email or web address] Visit Number Visit Number 5 Discharge Summary PT OP: Lower Back/Lower Extremity Start: 08/20/25 18:27 Freq: Status: Active Protocol: Document 09/16/25 16:18 (Rec: 09/16/25 17:22 [id number]) Out-Patient Physical Therapy Visit Information Visit Information Visit Type Discharge Summary Visit Start Time 13:05 Visit Stop Time 13:45 Visit Number 5 Number of CULINARY ASSISTANT Visits 0 Precautions Precautions COUNCIL B OP-PT Subjective Patient Comments Patient Comments Patient reports compliance with home program, but also reports he is still unsure of the source of his symptoms. Reports R leg no longer hurts with crossing his legs, yet remains uncomfortable but is better w/ walking. Reports he would like to discharge following today's session due to insurance limitations and co- pays. Therapeutic Exercises Supine Exercises Knee to Chest Stretch Supine Exercise Name Single Knee to Chest and Double Knee to Chest Side bilateral Reps/Minutes 30 sec, 3x, 2xday Bridging Resistance Lvl2 Tb at hips Reps/Minutes 10 Comments cues knees over toes, cues breathing; attempted 5x SL but painful LTR Side bilateral Reps/Minutes x15 ea Comments cues allow back to stretch then push back down on way up Sidelying Exercises Clam Circuit Sidelying Exercise Reverse Clam, Clam w/elevated feet, Hip Abd with Knee Name Ext Side bilateral Reps/Minutes 15x, 2-3xday Clamshell Side bilateral Reps/Minutes 15 Comments cues for stable pelvis,hand on hip to monitor, breath Standing Exercises march Side bilateral Reps/Minutes 2x10 Comments cues core 2-way hip Standing Exercise HEP: abd, ext in bent over position Name Side bilateral Equipment Used at table Reps/Minutes 15 ea Comments cues for bent over position for back, cues toes fwd and neutral spine Physical Therapy Assessment Goals pain Short Term Goal (STG Pt will be able to increase to at least .75 mile walk ) for at least one of his daily walks STG Duration achieved 09/10 National Investigative Producer Goal (LTG) Pt will be able to return to .75 mile to 1 mile walks 2x/day and doing more housework w/o inc R back, hip or BLE pain. LTG Duration 11/11 strength Short Term Goal (STG Pt will demonstrate independence w/HEP by being able to ) perform with no more than min cues. STG Duration achieved 09/10-adjusting as able National Investigative Producer Goal (LTG) Pt will score at least 4+/5 on all BLE MMT and at least 3/5 LPM to show improved strength to allow pt to have less pain with walking and return to more ADLs 09/10-improving LTG Duration 11/16 sit to stand National Investigative Producer Goal (LTG) Pt will do 5x sit to desktop publishing specialist no greater than 12 sec per age related norms to dec fall risk LTG Duration achieved to 09/10 Assessment Summary Assessment Patient able to complete home program with minimal cueing for form. Program progressed today. Patient discharged due to patient request. Physical Therapy Plan Discharge Physical Therapy Discharge Reasons Patient Request
== END 2025-09-17 09:53 | disposition home or self-care (01) ==
LOC: PHYS 13:00
PROVIDERS: Family Provider Internal Medicine; PCP Internal Medicine; Referring Provider Physician Assistant Surgical; Visit Provider Physician Assistant Surgical
DX: M79.604 Pain in right leg (principal)
CPT/HCPCS: 97110; 97116; 97162; 97535

== ENCOUNTER → 2025-09-22 09:58 | Outpatient (CLI) | payer MEDICARE, SELFPAY ==
[2025-09-22 10:34] LABS: Alanine Aminotransferase 20 IU/L (<50); Albumin 4.6 g/dL (3.5-5.0); Albumin Globulin Ratio 1.7 (1.0-2.8); Alkaline Phosphatase 68 U/L (38-126); Blood Urea Nitrogen 13 mg/dL (9-20); Calcium 9.3 mg/dL (8.4-10.2); Carbon Dioxide 24 mmol/L (22-32); Chloride 106 mmol/L (98-107); Cholesterol 108 mg/dL (140-199); Estimated Glomerular Filt Rate > 60 mL/min (>60); Globulin 2.7 g/dL (1.7-4.1); Glucose 104 mg/dL (70-99); HDL Cholesterol 51 mg/dL (40-60); HEMOLYSIS < 15 (0-50); Potassium 4.4 mmol/L (3.4-5.1); Sodium 138 mmol/L (137-145); Total Protein 7.3 g/dL (6.3-8.2); Triglycerides 80 mg/dL (35-150)
[2025-09-22 10:52] LABS: Free T4, Direct Thyroxine 1.41 ng/dL (0.78-2.19)
[2025-09-22 11:06] LABS: Thyroid Stimulating Hormone 0.773 uIU/mL (0.47-4.68)
== END ==
PROVIDERS: Family Provider Internal Medicine; PCP Internal Medicine; Referring Provider Internal Medicine; Visit Provider Internal Medicine
DX: E78.2 Mixed hyperlipidemia (principal); I10 Essential (primary) hypertension; E03.9 Hypothyroidism, unspecified
CPT/HCPCS: 36415; 80053; 80061; 84439; 84443